=== PATIENT | female | born 1980 | race Caucasian/White ===

== ENCOUNTER 2019-10-07 07:17 | Emergency (ER) | payer BC ==
[~2019-10-07] VITALS: Ht 157.5 cm; Wt 79.7 kg
[2019-10-07 08:23] LABS: BASO # 0.1 10^3/uL (0.0-0.2); BASO % 0.4 % (0.0-1.0); EOS # 0.3 10^3/uL (0.0-0.5); EOS % 2.6 % (0.0-3.0); HEMATOCRIT 41.4 % (36.0-47.0); HEMOGLOBIN 13.3 g/dl (12.0-15.5); LYMPH # 1.8 10^3/uL (1.5-5.0); MEAN CORPUSCULAR HEMOGLOBIN 28.2 pg (27.0-33.0); MEAN CORPUSCULAR HGB CONC 32.1 g/dl (32.0-36.5); MEAN CORPUSCULAR VOLUME 87.7 fl (80.0-96.0); MONO # 0.8 10^3/uL (0.0-0.8); MONO % 5.9 % (0.0-5.0); NEUTROPHILS # 9.8 10^3/uL (1.5-8.5); NEUTROPHILS % 76.7 % (36.0-66.0); PLATELET COUNT, AUTOMATED 299 10^3/uL (150-450); RED BLOOD COUNT 4.72 10^6/uL (4.00-5.40); WHITE BLOOD COUNT 12.8 10^3/uL (4.0-10.0)
[2019-10-07] MEDS ORDERED: cefTRIAXone SOD 1 GM VIAL (J0696) IM ONE (10:00)
[2019-10-07] MEDS ORDERED: LIDOCAINE 1% SDV 5 ML VIAL DILUENT ONE (10:00)
[2019-10-07 10:06] VITALS: BP 127/82
[2019-10-07] MEDS ORDERED: KEFL500C17 PO (10:50)
--- NOTE | 2019-10-07 10:52 | REP ---
CT of the abdomen and pelvis without IV or bowel contrast for bilateral flank pain: There are no comparisons. The visualized lung henson are unremarkable. The hepatic parenchyma, gallbladder, pancreas and spleen are unremarkable. The adrenals are unremarkable. There are no renal, ureteral or bladder calculi on the right on the left. There is no hydronephrosis on the right on the left. No perinephric stranding on the right on the left. No renal cysts are identified. In the absence of IV contrast the study is insensitive for renal masses. The abdominal aorta is unremarkable. There is no periaortic adenopathy or mass. A few normal-size nodes are noted. There is no bowel distension or obstruction. There is mild wall thickening of the descending colon and sigmoid colon. This is nonspecific but could represent colitis in the appropriate clinical setting. Pelvis: The appendix is unremarkable. The terminal ileum is unremarkable. The uterus, adnexa and bladder are unremarkable. There are phleboliths. There is no adenopathy or ascites. The skeletal structures of the lumbar spine, sacrum and pelvis are unremarkable. Impression: There are no renal, ureteral or bladder calculi. There is no hydronephrosis. There is no perinephric stranding. Mild wall thickening of the descending colon and sigmoid colon, nonspecific, but could represent colitis the appropriate clinical setting. Electronically Signed by Elpidio Gregorio MD 10/07/2019 10:43 A
== END 2019-10-07 10:50 | disposition home or self-care (01) ==
LOC: M ED 07:17
DX: N39.0 Urinary tract infection, site not specified (principal); F17.210 Nicotine dependence, cigarettes, uncomplicated
CPT/HCPCS: 36415; 74176; 80047; 81001; 85025; 87088; 87186; 96372; 99283; J0696

== ENCOUNTER → 2019-11-13 | Outpatient (CLI) | payer BC ==
[~2019-11-13] MED LIST: KEFL500C17 PO
[2019-11-13 13:52] LABS: FOLLICLE STIMULATING HORMONE 4.9 mIU/mL; LUTEINIZING HORMONE 9.8 mIU/mL; THYROID STIMULATING HORMONE 1.56 uIU/ML (0.358-3.740)
[2019-11-15 00:06] LABS: ANTINUCLEAR ANTIBODIES DIRECT Negative (Negative)
== END ==
LOC: M WUC 09:04
PROVIDERS: ATTEND Nurse Practitioner Family
DX: L64.9 Androgenic alopecia, unspecified (principal)

== ENCOUNTER 2020-07-14 06:54 | Emergency (ER) | payer BC ==
[~2020-07-14] VITALS: Ht 157.5 cm; Wt 78.7 kg
--- NOTE | 2020-07-14 07:46 | REP ---
INDICATION: L posterior knee pain COMPARISON: None. TECHNIQUE: AP, lateral, bilateral oblique and sunrise views. FINDINGS: The osseous structures and joint spaces are intact and normal. Incidental flabella noted. There is no evidence for acute fracture or dislocation. No joint effusion is appreciated. Surrounding soft tissues are unremarkable. No subcutaneous emphysema or radiodense foreign body. IMPRESSION: Normal age-appropriate left knee examination. <Electronically signed by Jose Nur > 07/14/20 [id number]
--- NOTE | 2020-07-14 08:16 | REP ---
INDICATION: L calf and posterior knee pain, r/o DVT. COMPARISON: None TECHNIQUE: Multiple ultrasonographic images of the deep venous structures of the left thigh were obtained from the level of the common femoral vein to the popliteal vein in the longitudinal and transverse scan planes along with Doppler interrogation and color flow Doppler imaging. FINDINGS: There is no abnormal echogenic material seen within any of the visualized deep venous structures that would suggest acute thrombosis. Coaptation is unremarkable throughout. Doppler interrogation shows an expected response to respiratory variability and augmentation. The color flow Doppler images show what appears to be a normal vascular pattern throughout. No visible popliteal fossa cyst. IMPRESSION: There is no ultrasonographic evidence of deep venous thrombosis involving any of the visualized deep venous structures of the left thigh as described above. Accredited by the [employer] in Vascular Peripheral Ultrasound. <Electronically signed by Chidi Gonzalez > 07/14/20 [id number]
[2020-07-14 08:30] VITALS: BP 133/82
== END 2020-07-14 08:34 | disposition home or self-care (01) ==
LOC: M ED 06:54
DX: M79.662 Pain in left lower leg (principal); F17.210 Nicotine dependence, cigarettes, uncomplicated

== ENCOUNTER → 2025-01-22 | Outpatient (CLI) | payer BC ==
[2025-01-22 17:23] LABS: BASO % 0.5 % (0.0-1.0); EOS # 0.1 10^3/uL (0.0-0.5); EOS % 1.7 % (0.0-3.0); HEMATOCRIT 43.6 % (36.0-47.0); HEMOGLOBIN 13.9 g/dl (12.0-15.5); LYMPH % 32.2 % (24.0-44.0); MEAN CORPUSCULAR HEMOGLOBIN 28.5 pg (27.0-33.0); MEAN CORPUSCULAR HGB CONC 31.9 g/dl (32.0-36.5); MEAN CORPUSCULAR VOLUME 89.5 fl (80.0-96.0); MONO # 0.3 10^3/uL (0.0-0.8); MONO % 5.2 % (2.0-8.0); NEUTROPHILS # 3.8 10^3/uL (1.5-8.5); NEUTROPHILS % 60.2 % (36.0-66.0); PLATELET COUNT, AUTOMATED 242 10^3/uL (150-450); RED BLOOD COUNT 4.87 10^6/uL (4.00-5.40); WHITE BLOOD COUNT 6.3 10^3/uL (4.0-10.0)
[2025-01-22 17:49] LABS: ALBUMIN 3.7 G/DL (3.2-5.2); ALKALINE PHOSPHATASE 52 U/L (35-104); ALT/SGPT 14 U/L (7.0-40); AST/SGOT 13 U/L (<34); BILIRUBIN,TOTAL 0.3 MG/DL (0.3-1.2); BLOOD UREA NITROGEN 12 MG/DL (9-23); CALCIUM LEVEL 9.2 MG/DL (8.5-10.1); CARBON DIOXIDE LEVEL 31 MMOL/L (20-31); CHLORIDE LEVEL 104 MMOL/L (98-107); CREATININE FOR GFR 0.65 MG/DL (0.55-1.30); GLOMERULAR FILTRATION RATE > 90.0 (>58); GLUCOSE, FASTING 110 MG/DL (60-100); IRON (FE) 57 UG/DL (50-170); PERCENT SATURATION 19.1 % (13.2-45.0); POTASSIUM SERUM 4.1 MMOL/L (3.5-5.1); SODIUM LEVEL 142 MMOL/L (136-145); TOTAL IRON BINDING CAPACITY 298 UG/DL (250-425); TOTAL PROTEIN 6.4 G/DL (5.7-8.2)
[2025-01-22 17:50] LABS: FOLATE 13.6 NG/ML (>5.4); THYROID STIMULATING HORMONE 1.661 uIU/ML (0.55-4.78)
[2025-01-22 17:51] LABS: VITAMIN B12 LEVEL 339 PG/ML (211-911)
[2025-01-23 12:09] LABS: FREE THYROXINE INDEX 2.4 % (1.3-4.8); T UPTAKE 39.8 % (22.5-37.0)
== END ==
LOC: M WUC 13:05
PROVIDERS: ATTEND Student in an Organized Health Care Education/Training Program
DX: R42 Dizziness and giddiness (principal)